=== PATIENT | female | born 1995 | race Two or more races ===

== ENCOUNTER 2025-02-28 14:39 | Emergency (ER) | payer OTHER ==
[~2025-02-28] VITALS: Ht 165.1 cm; Wt 61.2 kg
[2025-02-28 15:55] LABS: PLATELET COUNT (AUTO) 197 K/uL (150-450); RED BLOOD CELL COUNT(AUTO) 4.68 MIL/uL (4.0-5.2); RED CELL DISTRIBUTION WIDTH 12.5 % (11.5-15.0); WHITE BLOOD COUNT (AUTO) 6.9 K/uL (4.3-11.0)
[2025-02-28 16:03] LABS: CREATININE 0.7 mg/dL (0.6-1.3); SODIUM SERUM 135.0 mmol/L (136-145); UREA NITROGEN, BLOOD 8.0 mg/dL (7-18)
[2025-02-28] MEDS: IV NS 0.9% 1,000 ML BAG IV ONE (16:03)
[2025-02-28 16:07] LABS: INR 0.97 (0.91-1.10)
[2025-02-28 16:15] LABS: ASPARTATE AMINOTRANSFERASE 20.0 U/L (15-37); CALCIUM, SERUM 9.3 mg/dL (8.5-10.1); TOTAL PROTEIN, SERUM 7.6 g/dL (6.4-8.2)
[2025-02-28 17:21] LABS: APPEARANCE,URINE CLEAR (CLEAR); BLOOD, URINE Trace-intact Ery/uL (NEGATIVE); LEUKOCYTE ESTERASE ,URINE Negative (NEGATIVE); NITRITE, URINE NEGATIVE (NEGATIVE); UGLUCOSE Negative (NEGATIVE)
[2025-02-28 17:22] LABS: ADD URINE CULTURE NO; PREGNANCY TEST URINE QUAL NEGATIVE (NEGATIVE); SQUAMOUS EPITHELIAL CELL,UR Few /HPF (None Seen)
[2025-02-28] MEDS ORDERED: IV NS 0.9% 250 ML IV ONE (17:23)
[2025-02-28] MEDS ORDERED: IOHEXOL-300 100 ML VIAL IV ONE (17:23)
[2025-02-28] MEDS ORDERED: METR500T PO (18:21)
[2025-02-28] MEDS ORDERED: PRED50TA PO (18:21)
[2025-02-28 19:38] VITALS: BP 116/73; TEMP 98.3; O2SAT 98
== END 2025-02-28 19:40 | disposition home or self-care (01) ==
LOC: ER 14:45
DX: K52.9 Noninfective gastroenteritis and colitis, unspecified (principal); K62.5 Hemorrhage of anus and rectum; Z79.52 Long term (current) use of systemic steroids; Z60.2 Problems related to living alone
CPT/HCPCS: 99285; 74177; 96360; 85025; 80048; 83690; 80076; 81001; 36415; 85730; 84703 ×2; J7030; J7050; Q9967